=== PATIENT | female | born 1950 | race Two or more races ===

== ENCOUNTER 2017-01-31 14:04 | Inpatient (IN) | payer OTHER ==
[~2017-01-31] VITALS: Ht 154.9 cm; Wt 41.8 kg
[2017-01-31 18:23] LABS: ALBUMIN 4.1 g/dL (3.4-5.0); BILIRUBIN TOTAL 0.25 mg/dL (0.20-1.00); CALCIUM 9.2 mg/dL (8.5-10.1); CARBON DIOXIDE 25.2 mmol/L (21-32); CREATININE SERUM 2.7 mg/dL (0.6-1.0); TOTAL PROTEIN, SERUM 7.3 g/dL (6.4-8.2)
[2017-01-31 18:25] LABS: POTASSIUM SERUM 5.7 mmol/L (3.5-5.1)
[2017-01-31] MEDS ORDERED: ZESTRIL40 MG PO (18:59)
[2017-01-31] MEDS ORDERED: CARVEDILOL3.125 M1 PO (19:00)
[2017-01-31] MEDS ORDERED: LORAZEPAM0.5 MG PO (19:00)
[2017-01-31] MEDS ORDERED: D3-50001 TAB PO (19:01)
[2017-01-31] MEDS ORDERED: KEPPRA500 MG PO (19:01)
[2017-01-31] MEDS ORDERED: GLUCOPHAGE XR500 MG PO (19:01)
[2017-01-31] MEDS ORDERED: ASPIR 8181 MG PO (19:01)
[2017-01-31] MEDS ORDERED: ALLOPURINOL100 MG PO (19:02)
[2017-01-31] MEDS ORDERED: LOP600 PO (19:02)
[2017-01-31 20:01] VITALS: BP 106/61
[2017-01-31 20:02] LABS: PHOSPHOROUS 3.6 mg/dL (2.5-4.9); T3 TOTAL 0.54 ng/mL
[2017-01-31 20:03] LABS: CHOLESTEROL/HDL RATIO 2.4
[2017-01-31 20:44] LABS: FREE T4 0.9 ng/dL (0.76-1.46); FREE THYROXINE INDEX 1.8 ug/dL (1.4-4.5); T4(THYROXINE) 5.6 ug/dL (4.7-13.3)
[2017-01-31 20:58] VITALS: BP 106/61
[2017-02-01 00:26] LABS: CALCIUM 8.9 mg/dL (8.5-10.1); CARBON DIOXIDE 25.9 mmol/L (21-32); CREATININE SERUM 2.4 mg/dL (0.6-1.0); POTASSIUM SERUM 4.9 mmol/L (3.5-5.1)
[2017-02-01 05:28] VITALS: BP 103/54
[2017-02-01 08:00] LABS: CARBON DIOXIDE 24.7 mmol/L (21-32); CREATININE SERUM 2.3 mg/dL (0.6-1.0); POTASSIUM SERUM 4.7 mmol/L (3.5-5.1)
[2017-02-01 08:01] LABS: BASOPHIL % 1.6 % (0-2); PLATELET COUNT 340 x10^3mcL (130-400); RED CELL DISTRIBUTION WIDTH 13.6 % (11.5-14.5)
[2017-02-01 08:35] LABS: microscopic required? YES; urine erythrocyte NEGATIVE (NEGATIVE)
[2017-02-01 09:36] VITALS: BP 110/56
[2017-02-01 13:55] VITALS: BP 97/46
[2017-02-01 16:55] VITALS: BP 102/49
[2017-02-01 20:03] LABS: BASOPHIL % 0.9 % (0-2); PLATELET COUNT 306 x10^3mcL (130-400); RED CELL DISTRIBUTION WIDTH 13.8 % (11.5-14.5)
[2017-02-01 21:41] VITALS: BP 103/54
[2017-02-02 06:02] VITALS: BP 104/51
[2017-02-02 06:26] LABS: CALCIUM 9.3 mg/dL (8.5-10.1); CARBON DIOXIDE 24.7 mmol/L (21-32); CREATININE SERUM 2.1 mg/dL (0.6-1.0); POTASSIUM SERUM 5.3 mmol/L (3.5-5.1)
[2017-02-02 07:37] LABS: BASOPHIL % 0.9 % (0-2); PLATELET COUNT 296 x10^3mcL (130-400); RED CELL DISTRIBUTION WIDTH 13.7 % (11.5-14.5)
[2017-02-02 10:05] VITALS: BP 106/52
[2017-02-02 14:32] VITALS: BP 115/59
[2017-02-02 14:51] LABS: CALCIUM 8.8 mg/dL (8.5-10.1); CARBON DIOXIDE 22.9 mmol/L (21-32); POTASSIUM SERUM 4.3 mmol/L (3.5-5.1)
[2017-02-02 15:16] VITALS: BP 115/59
== END 2017-02-02 17:04 | disposition home or self-care (01) | DRG 422 ==
LOC: ED 14:04 → DU 18:53
PROVIDERS: Emergency Medicine Emergency Medical Services; Family Medicine; Student in an Organized Health Care Education/Training Program; ADMIT Family Medicine
DX: E86.0 Dehydration (principal); N17.0 Acute kidney failure with tubular necrosis; R55 Syncope and collapse; N39.0 Urinary tract infection, site not specified; E87.5 Hyperkalemia; E11.65 Type 2 diabetes mellitus with hyperglycemia; E11.51 Type 2 diabetes mellitus with diabetic peripheral angiopathy without gangrene; D64.9 Anemia, unspecified; G40.909 Epilepsy, unspecified, not intractable, without status epilepticus; Z68.1 Body mass index [BMI] 19.9 or less, adult; Z79.82 Long term (current) use of aspirin; Z79.84 Long term (current) use of oral hypoglycemic drugs; Z86.73 Personal history of transient ischemic attack (TIA), and cerebral infarction without residual deficits
CPT/HCPCS: 82962; 83880; 84439; 97110-GP; J7030; Q0092